=== PATIENT | male | born 1955 | race Caucasian/White ===

== ENCOUNTER → 2020-05-31 | Outpatient (CLI) | payer MEDICARE, OTHER ==
[~2020-05-31] MED LIST: AMARYL1 MG PO; APPLE CIDER VI500 MG PO; ASPIRIN EC81 MG PO; CILOSTAZOL50 MG PO; CINNAMON500 MG PO; CLOPIDOGREL75 MG PO; FISH OIL 1,2001 EACH PO; FISH OIL EC 1,1 EACH PO; GLUCOPHAGE 500500 MG PO; ISOSORBIDE DINI30 MG PO; LIPITOR TAB 1010 MG PO; METOPROLOL SUCC25 MG PO; MULTI-VITAMIN1 EACH PO; ZESTRIL5 MG PO
== END ==
LOC: KOH-I 09:38
DX: I25.10 Atherosclerotic heart disease of native coronary artery without angina pectoris (principal); I73.9 Peripheral vascular disease, unspecified; I65.23 Occlusion and stenosis of bilateral carotid arteries
CPT/HCPCS: 93880; 93922; 93925

== ENCOUNTER 2021-01-24 19:02 | Emergency (ER) | payer MEDICARE, OTHER ==
[2021-01-24 20:22] LABS: HEMOGLOBIN 12.5 gm/dl (14.0-17.5); RED BLOOD COUNT 3.95 M/UL (4.20-5.50); WHITE BLOOD COUNT 11.5 K/UL (4.5-11.0)
[2021-01-24 20:39] LABS: BUN/CREATININE RATIO 24 (0-10)
== END 2021-01-25 02:37 | disposition other institution (70) ==
LOC: ER1 19:02
PROVIDERS: Physician Assistant
DX: G89.18 Other acute postprocedural pain (principal); R10.817 Generalized abdominal tenderness; R50.9 Fever, unspecified; E11.9 Type 2 diabetes mellitus without complications; I10 Essential (primary) hypertension; Z88.5 Allergy status to narcotic agent; Z90.89 Acquired absence of other organs
CPT/HCPCS: 71045; 80053; 81001; 82550; 82553; 83605; 83735; 83880; 84100; 84484; 85025; 85610; 85652; 85730; 86140; 87040; 87086; 93005; 96365; 96375; 99285; J0692; J1885; Q9967

== ENCOUNTER → 2021-03-04 | Outpatient (CLI) | payer MEDICARE, OTHER | LOC: KOH-I 11:05 | DX: R91.1 Solitary pulmonary nodule (principal); J98.11 Atelectasis | CPT/HCPCS: 71250 ==

== ENCOUNTER → 2021-06-05 | Outpatient (CLI) | payer MEDICARE | LOC: KOH-I 12:55 | DX: R91.1 Solitary pulmonary nodule (principal); J98.11 Atelectasis | CPT/HCPCS: 71250 ==

== ENCOUNTER → 2021-12-17 | Outpatient (CLI) | payer MEDICARE, OTHER | LOC: KOH-I 08:30 | DX: R91.1 Solitary pulmonary nodule (principal) | CPT/HCPCS: 71250 ==